=== PATIENT | female | born 1950 | race Caucasian/White ===

== ENCOUNTER → 2016-06-20 | Outpatient (CLI) | payer MEDICARE ==
[~2016-06-20] MED LIST: ATIVAN1 MG PO; B COMPLEX #11 TA1 PO; BYSTOLIC5 MG PO; CITALOPRAM20 MG PO; DUONEB 3 MG/3 ML3 ML IH; IRBESARTAN150 M1 PO; LASIX40 MG PO; LORTAB 5/500 501 TAB PO; LORTAB 500 MG-71 TAB PO; MULTIVITAMIN1 TA2 PO; OMEPRAZOLE DR20 MG PO; PROAIR HFA0.09 MG/AC IH; SIMVASTATIN40 MG PO; SINGULAIR 10 MG10 MG PO; SYMBICORT 10.10.2 M1 IH; SYNTHROID 0.00.05 MG PO; TIKOSYN0.5 MG PO; VITAMIN D1000 IU PO; XARELTO20 MG PO
--- NOTE | 2016-06-20 15:39 | RADIOLOGY REPORT PS360 ---
BONE DENSITOMETRY(HIP:LT SPINE HISTORY: POST MENOPAUSAL ORDERING PHYSICIAN: Shilpa Vicente APRN PATIENT AGE: 65 years COMPARISON: None FINDINGS: The BMD measured of the AP spine is 0.918 g percent meters squared with a T score of -2.2 consistent with osteopenia. Fracture risk is moderate. Treatment is advised. The mean density of the hips is a T score of -2.2 as well. IMPRESSION: Osteopenia of the lumbar spine and hips. Recommend follow-up exam June 2018
== END ==
LOC: RAD 12:48
DX: Z78.0 Asymptomatic menopausal state (principal)

== ENCOUNTER → 2017-02-22 | Outpatient (CLI) | payer MEDICARE ==
--- NOTE | 2017-02-22 18:42 | RADIOLOGY REPORT PS360 ---
DIG MAMM-SCREEN YIMI W/CAD CAD Screening ORDERING PHYSICIAN : Shilpa Vicente APRN PATIENT AGE: 66 years GENDER: Female COMPARISON: Previous mammograms: January 2016, 2014, December 2013 INDICATION: Routine screening 66-year-old no hormones no new complaints. Noncontributory family history TECHNIQUE: Standard CC and MLO images were obtained. R2 CAD reviewed. Additional nipple profile views bilaterally both CC and MLO FINDINGS: Low-density fatty replacement both breasts with no new findings. No dominant mass nor suspicious calcifications either breast. RIGHT BREAST:. Stable negative right mammogram. LEFT BREAST: Pacemaker again seen towards axillary tail left breast partially obscuring this area IMPRESSION: Negative bilateral mammogram No areas of concern. Replacement. Low-density breast. BI-RADS CATEGORY: 1_Negative RECOMMENDED FOLLOWUP: 12M 12 MONTH FOLLOW-UP (A letter has been sent to the patient regarding results of the study.)
== END ==
LOC: RAD 08:23
DX: Z12.31 Encounter for screening mammogram for malignant neoplasm of breast (principal)
CPT/HCPCS: G0202